=== PATIENT | female | born 1955 | race Two or more races ===

== ENCOUNTER 2016-08-23 22:06 | Emergency (ER) | payer MEDICARE, OTHER ==
--- NOTE | ~2016-08-23 | CR63 ---
[facility] A Service of [facility] RADIOLOGY TEXT RESULTS PATIENT: VICKY BURNS LOCATION: SED : 59 UNIT #: [id number] AGE: [address]: JAMEEL LEVI PA-C SEX: F ORDER DR: [id number] [address] [address] [id number] E MR#: [id number] #: [id number] NAME: VICKY BURNS : 1955 SEX: F STUDY DATE/TIME: 08/23/2016 23:02 UNIT: SED ROOM: STUDY DESCRIPTION: CR Chest 2 View Attending Physician: Jameel Levi Pa-C Primary Care Physician: Julius Javier Aprn MEDICAL IMAGING REPORT This report is preliminary unless electronic signature is present. REVISED REPORT SEE ADDENDUM EXAM 2 views of the chest COMPARISON None INDICATIONS 61-year-old female with cough, dyspnea and wheezing since last night. FINDINGS/IMPRESSION Cardiomediastinal silhouette is within normal limits. There are bulky degenerative facet changes of the cervical spine bilaterally. No evidence of pneumothorax or pleural effusion. No evidence of acute airspace disease. Dictated by... Sincere Dimas M.D. THIS IS AN ELECTRONICALLY VERIFIED REPORT Sincere Dimas M.D. at 08/26/2016 10:17 PM ELLIOTT/jayson TD: 08/24/2016 07:23 JOB #: [id number] ADDENDUM On the lateral view it appears there is a nodular density overlapping the [facility] A Service of [facility] RADIOLOGY TEXT RESULTS PATIENT: VICKY BURNS LOCATION: SED : 59 UNIT #: [id number] AGE: [address]: JAMEEL LEVI PA-C SEX: F ORDER DR: thoracic spine just above the diaphragm which may be artifactual and representing an overlapping bronchovascular structure or other structure but pulmonary nodule cannot be excluded. Consider outpatient CT chest for further evaluation if none has been performed elsewhere. Dictated by... Sincere Dimas M.D. THIS IS AN ELECTRONICALLY VERIFIED REPORT Sincere Dimas M.D. at 08/27/2016 9:15 PM Aly TD: 08/24/2016 07:24 JOB #: [id number] MEDICAL IMAGING REPORT Page 1 of 1
[~2016-08-23 22:06] MED LIST: CYMBALTA; DULOXETINE HCL60 M1; FUROSEMIDE40 MG; GABAPENTIN300 M2 PO; LAMOTRIGINE100 MG; LAMOTRIGINE100 MG PO; LASIX; LOPRESSOR; METOPROLOL SUCC25 MG; NEURONTIN600 MG DOB; QUETIAPINE FUM300 MG; SEROQUEL
[2016-08-23 23:08] LABS: BASOPHIL# 0.1 X10e3 (0-0.3); EOSINOPHIL# 0.1 X10e3 (0-0.7); EOSINOPHIL% 1.6 % (0.0-7.0); HEMATOCRIT 43.6 % (35.0-45.0); HEMOGLOBIN 14.4 gm/dL (12.0-16.0); LYMPHOCYTE# 1.9 X10e3 (1.0-3.5); LYMPHOCYTE% 31.4 % (17.0-45.0); MEAN CELL VOLUME 91.5 FL (83-96); MEAN CORPUSCULAR HEMOGLOBIN 30.3 PG (28-34); MEAN CORPUSCULAR HGB CONC 33.1 g/dL (30-36); MEAN PLATELET VOLUME 9.1 FL (6.5-11.5); MONOCYTE# 0.9 X10e3 (0-1.0); MONOCYTE% 14.6 % (3.0-12.0); NEUTROPHIL# 3.1 X10e3 (1.5-7.1); NEUTROPHIL% 51.4 % (40-75); PLATELET COUNT 199 X10e3 (140-420); RED BLOOD COUNT 4.76 X10e (3.90-5.30); RED CELL DISTRIBUTION WIDTH 13.8 % (11.0-15.5); WHITE BLOOD COUNT 6.1 X10e3 (4.0-10.5)
[2016-08-23 23:11] LABS: DIFF IND NO
[2016-08-23 23:25] LABS: ALBUMIN SERUM 3.4 g/dL (3.5-5.0); BILIRUBIN,TOTAL 0.3 mg/dL (0.2-2.0); BUN/CREATININE RATIO 13.33; CALCIUM SERUM 8.2 mg/dL (8.4-10.2); CREATININE SERUM 0.9 mg/dL (0.6-1.4); POTASSIUM 3.6 mmol/L (3.5-5.1); PROTEIN TOTAL SERUM 7.5 g/dL (6.0-8.3)
== END 2016-08-24 00:18 | disposition home or self-care (01) ==
LOC: SED 22:06
PROVIDERS: Physician Assistant
DX: R50.9 Fever, unspecified (principal); R05 Cough; I50.9 Heart failure, unspecified; I25.10 Atherosclerotic heart disease of native coronary artery without angina pectoris; B34.9 Viral infection, unspecified
CPT/HCPCS: 71020; 80053; 83880; 85025; 94640; 99284